=== PATIENT | male | born 1970 | race Two or more races ===

== ENCOUNTER 2021-08-13 11:34 | Emergency (ER) | payer MEDICAID ==
[~2021-08-13] VITALS: Ht 177.8 cm; Wt 99.8 kg
[2021-08-13 11:55] VITALS: BP 130/79
[2021-08-13] MEDS ORDERED: IBUPROFEN 800 MG TAB PO ONE (12:45)
[2021-08-13] MEDS ORDERED: CEPH-509 PO (12:52)
== END 2021-08-13 13:06 | disposition home or self-care (01) ==
LOC: ER 11:34
DX: S01.01XA Laceration without foreign body of scalp, initial encounter (principal); W26.8XXA Contact with other sharp object(s), not elsewhere classified, initial encounter; Y93.89 Activity, other specified; Y92.89 Other specified places as the place of occurrence of the external cause; Y99.8 Other external cause status
CPT/HCPCS: 12002